=== PATIENT | female | born 1985 | race Caucasian/White ===

== ENCOUNTER 2020-04-02 23:42 | Emergency (ER) | payer BC ==
--- NOTE | 2020-04-03 00:16 | EDM.PDOC ---
ED HPI GENERAL MEDICAL PROBLEM - General Chief Complaint: General Stated Complaint: L BREAST PAIN - mastitis Time Seen by Provider: 04/03/20 00:00 Source of Information: Reports: Patient History Limitations: Reports: No Limitations - History of Present Illness INITIAL COMMENTS - FREE TEXT/NARRATIVE: 35 YO WF PRESENTS TO ER COMPLAINING OF RIGHT BREAST TENDERNESS WHICH BEGAN PIERRE GHT. PT REPORTS SHE IS 2 MONTHS POST AND HAS BEEN BREAST FEEDING WITHOUT DIFFICULTY. PT REPORTS TODAY SHE NOTICED SOME MILD SWELLING AND TENDERNESS TO HER RIGHT BREAST PROMPTING ER EVALUATION. PT DENIES FEVER/CHILLS, NO ABNORMAL DRAINAGE FROM BREAST. PT REPORTS SHE'S BEEN ABLE TO BREAST FEED WITH SOME RELIEF. PT DENIES REDNESS OR COLOR CHANGE TO BREAST. Onset: Today Location: Reports: Other (RIGHT BREAST) Quality: Reports: Ache Severity: Mild Improves with: Reports: None Worsens with: Reports: None Associated Symptoms: Reports: No Other Symptoms Treatments [employer]: Reports: Acetaminophen - Related Data Allergies Allergy/AdvReac Type Severity Reaction Status Date / Time ampicillin Allergy Nausea Verified 04/02/20 23:48 cefaclor [From Ceclor] Allergy Hives Verified 04/02/20 23:48 Home Meds: Home Meds Doxycycline Monohydrate 100 mg PO BID #20 cap 04/03/20 [Rx] ED ROS GENERAL - Review of Systems Review Of Systems: See Below Constitutional: Reports: No Symptoms HEENT: Reports: No Symptoms Respiratory: Reports: No Symptoms Cardiovascular: Reports: No Symptoms Endocrine: Reports: No Symptoms GI/Abdominal: Reports: No Symptoms : Reports: No Symptoms Musculoskeletal: Reports: No Symptoms Skin: Reports: Other (SWELLING AND TENDERNESS TO LOWER ASPECT OF RIGHT BREAST WITHOUT NIPPLE INVOLVEMENT) Neurological: Reports: No Symptoms Psychiatric: Reports: No Symptoms Hematologic/Lymphatic: Reports: No Symptoms Immunologic: Reports: No Symptoms ED EXAM, GENERAL - Physical Exam Exam: See Below Exam Limited By: No Limitations General Appearance: Alert, WD/WN, No Apparent Distress Eye Exam: Bilateral Eye: Normal Fundi, PERRL Throat/Mouth: Normal Inspection, Normal Lips, Normal Teeth, Normal Gums, Normal Oropharynx, Normal Voice, No Airway Compromise Head: Atraumatic, Normocephalic Neck: Normal Inspection, Supple, Non-Tender, Full Range of Motion Respiratory/Chest: No Respiratory Distress, Lungs Clear, Normal Breath Sounds, No Accessory Muscle Use, Chest Non-Tender Cardiovascular: Normal Peripheral Pulses, Regular Rate, Rhythm, No Edema, No Gallop, No JVD, No Murmur, No Rub GI/Abdominal: Normal Bowel Sounds, Soft, Non-Tender, No Organomegaly, No Distention, No Abnormal Bruit, No Mass Back Exam: Normal Inspection, Full Range of Motion, NT Extremities: Normal Inspection, Normal Range of Motion, Non-Tender, Normal Capillary Refill, No Pedal Edema Neurological: Alert, Oriented, CN II-XII Intact, Normal Cognition, Normal Gait, Normal Reflexes, No Motor/Sensory Deficits Psychiatric: Normal Affect, Normal Mood Skin Exam: Warm, Dry, Intact, Normal Color, No Rash, Other (SWELLING AND TENDERNESS TO LOWER ASPECT OF RIGHT BREAST WITHOUT NIPPLE INVOLVEMENT) Course - Vital Signs Last Recorded V/S: Last Vital Signs Temp 36.8 C 04/02/20 23:52 Pulse 70 04/02/20 23:52 Resp 18 04/02/20 23:52 BP 100/64 04/02/20 23:52 Pulse Ox 98 04/02/20 23:52 Departure - Departure Time of Disposition: 00:22 Disposition: Home, Self-Care 01 Condition: Good Clinical Impression: Mastitis - Discharge Information Prescriptions: Doxycycline Monohydrate 100 mg PO BID #20 cap Instructions: Mastitis, [id number] Referrals: PCP,Unknown [Primary Care Provider] - Additional Instructions: 1. DISCHARGE HOME 2. DOXYCYCLINE 100MG TWICE/DAY X 10 DAYS 3. WARM COMPRESSES TO BREAST 4. CONTINUE BREAST FEEDING 5. FOLLOW UP WITH PCP FOR FURTHER EVALUATION AND TREATMENT 6. RETURN TO ER FOR WORSENING SYMPTOMS Sepsis Event Note (ED) - Evaluation Sepsis Screening Result: No Definite Risk - Focused Exam Vital Signs: Vital Signs Temp Pulse Resp BP Pulse Ox 04/02/20 23:52 36.8 C 70 18 100/64 98 - Assessment/Plan Assessment:: 1. EARLY MASTITIS OF RIGHT BREAST WITHOUT ABSCESS Plan: 1. DISCHARGE HOME 2. DOXYCYCLINE 100MG TWICE/DAY X 10 DAYS 3. WARM COMPRESSES TO BREAST 4. CONTINUE BREAST FEEDING 5. FOLLOW UP WITH PCP FOR FURTHER EVALUATION AND TREATMENT 6. RETURN TO ER FOR WORSENING SYMPTOMS
== END 2020-04-03 00:35 | disposition home or self-care (01) ==
LOC: KA.ED 23:42
DX: N61.0 Mastitis without abscess (principal); Z88.1 Allergy status to other antibiotic agents
CPT/HCPCS: 99283; A9270